=== PATIENT | male | born 1945 | race Caucasian/White ===

== ENCOUNTER 2025-07-03 08:19 | Outpatient (CLI) | payer MEDICARE, OTHER ==
[~2025-07-03] VITALS: Ht 158.8 cm; Wt 52.2 kg
[2025-07-03] MEDS: albuterol 2.5 MG/3 ML nebule NEB ONE (09:40)
[2025-07-03 09:44] VITALS: PULSE 69; RESP 16; O2SAT 96
[2025-07-03 09:57] VITALS: PULSE 60; RESP 15
--- NOTE | 2025-07-04 15:52 | PROCEDURE NOTE - Respiratory ---
Procedure Note-Respiratory Providers to Copies To 1: Domenico Hernández MD Procedure Name: This is a complete pulmonary function study dated July 03, 2025. Spirometry measurements: The forced vital capacity is normal. The FEV1 shows severe reduction. The FEV1 ratio is severely reduced. All of the measured flow rates show substantial reduction. After inhaled bronchodilator was administered, there is only very minimal improvement in some of the flow rate measurements. Spirometry documents very severe obstructive ventilatory defect. Lung volume measurements: The total lung capacity is in the upper range of normal. There is elevation of the functional residual capacity and the residual volume. These findings suggest some degree of hyperinflation with clearly gas trapping within the lungs. Lung diffusion measurement: The DLCO measurement is significantly reduced. The KVO measurement is quite low. The alveolar volume measurement is in the lower range of normal. Airway resistance measurement: The airway resistance is elevated. Overall conclusion: This study shows severe abnormality. There is evidence for severe obstructive ventilatory defect. The patient shows hyperinflation with air trapping within the lungs. These findings together with a very low DLCO measurements strongly indicates the presence of emphysema. 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 The patient responds only very slightly to inhaled bronchodilator. Close pulmonary follow-up is recommended. We have no previous studies for comparison. DOMENICO ACOSTA MD Jul 04, 2025 15:52
== END 2025-07-03 23:59 | disposition home or self-care (01) ==
LOC: RT 08:19
PROVIDERS: ATTEND Family Medicine
DX: J44.9 Chronic obstructive pulmonary disease, unspecified (principal); J98.9 Respiratory disorder, unspecified
CPT/HCPCS: 94060; 94727; 94729; 94760